=== PATIENT | female | born 1955 | race Caucasian/White ===

== ENCOUNTER 2018-10-14 06:58 | Day surgery (SDC) | payer MEDICARE ==
[~2018-10-14] VITALS: Ht 170.2 cm; Wt 51.2 kg
[2018-10-14 07:28] VITALS: BP 110/78
[2018-10-14] MEDS ORDERED: normal saline 1000ml 1,000 ML IV PRN (07:30)
[2018-10-14] MEDS ORDERED: albumin (human) 25% 100 ML IV solution IV PRN (07:30)
[2018-10-14] MEDS ORDERED: LACT10SO PO (07:31)
[2018-10-14] MEDS ORDERED: CHOL10002 PO (07:31)
[2018-10-14] MEDS ORDERED: SPIR100T5 PO (07:31)
[2018-10-14] MEDS ORDERED: CALC600T18 PO (07:31)
[2018-10-14] MEDS ORDERED: FURO40TA4 PO (07:31)
[2018-10-14] MEDS ORDERED: LIDOcaine 1% 30ml preserv. free vial SQ ONE (08:30)
[2018-10-14 09:03] VITALS: BP 120/73
[2018-10-14 09:15] VITALS: BP 117/72
[2018-10-14 09:30] VITALS: BP 114/65
[2018-10-14 09:45] VITALS: BP 110/67
== END 2018-10-14 10:00 | disposition home or self-care (01) ==
LOC: SSTAY O 06:58
PROVIDERS: ATTEND Radiology Diagnostic Radiology
DX: R18.8 Other ascites (principal); Z86.19 Personal history of other infectious and parasitic diseases; Z98.51 Tubal ligation status; Z79.899 Other long term (current) drug therapy; Z98.890 Other specified postprocedural states
CPT/HCPCS: 49083; J3490; J7030